=== PATIENT | female | born 2005 | race Caucasian/White ===

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

== ENCOUNTER 2023-01-17 21:04 | Emergency (ER) | payer BC ==
[2023-01-17 21:12] VITALS: BP 135/92; PULSE 90; RESP 18; TEMP 99.3; BMI 18.1
[2023-01-17] MEDS ORDERED: ACETAMINOPHEN 1000 MG/100 ML BAG IVPB ONE (22:00)
[2023-01-17] MEDS ORDERED: SODIUM CHLORIDE 0.9% 500 ML INFUS.BAG IV ONE (22:00)
[2023-01-17] MEDS ORDERED: ONDANSETRON 4 MG/2 ML VIAL IVPUSH ONE (22:00)
[2023-01-17] MEDS ORDERED: ACETAMINOPHEN INJECTION 100 ML IVPB ONE (22:06)
[2023-01-17] MEDS ORDERED: ONDANSETRON 4 MG/2 ML VIAL ONE (22:06)
[2023-01-17 22:31] LABS: BASO % 0.8 % (0-2.0); EOS % 0.8 % (0-4.5); HEMATOCRIT 40.8 % (32.4-45.2); HEMOGLOBIN 13.8 GM/dL (10.7-15.3); LYMPH % 35.2 % (8-40); MCH 28.1 pg (25.7-33.7); MCHC 33.9 g/dl (32.0-36.0); MEAN PLT VOLUME 8.6 fl (7.5-11.1); NEUT % 56.2 % (42.8-82.8); PLATELET COUNT 267 10^3/uL (134-434); RBC 4.92 M/mm3 (3.60-5.2); RDW 13.3 % (11.6-15.6); WHITE BLOOD COUNT 12.4 K/mm3 (4.0-10.0)
[2023-01-17 22:33] LABS: PH,URINE 7.5 (5.0-8.0); URINE APPEARANCE CLEAR; URINE BILIRUBIN NEGATIVE (NEGATIVE); URINE COLOR YELLOW; URINE GLUCOSE (UA) NEGATIVE (NEGATIVE); URINE KETONE NEGATIVE (NEGATIVE); URINE LEUK ESTERASE NEGATIVE (NEGATIVE); URINE NITRITE NEGATIVE (NEGATIVE); URINE PROTEIN NEGATIVE (NEGATIVE); URINE UROBILINOGEN 0.2 mg/dL (0.2-1.0)
[2023-01-17 22:46] LABS: INR 1.1 (0.83-1.09); PROTHROMBIN TIME (PATIENT) 12.7 SEC (9.7-13.0)
[2023-01-17 22:48] LABS: ACTIVATED PTT 31.1 SECONDS (25.2-36.5)
[2023-01-17 23:07] LABS: ALBUMIN 4.5 g/dl (3.4-5.0); ALK PHOS 48 U/L (45-117); ANION GAP 7 MMOL/L (8-16); BILIRUBIN,TOTAL 0.6 mg/dL (0.2-1); BLOOD UREA NITROGEN 9.6 mg/dL (7-18); CHLORIDE 108 mmol/L (98-107); CO2 24 mmol/L (21-32); CREATININE 0.7 mg/dL (0.55-1.3); GLUCOSE,RANDOM 73 mg/dL (74-106); MAGNESIUM 2.3 mg/dL (1.8-2.4); POTASSIUM 3.4 mmol/L (3.5-5.1); SGOT/AST 16 U/L (15-37); SGPT/ALT 22 U/L (13-61); SODIUM 140 mmol/L (136-145); TOT PROT 8.3 g/dl (6.4-8.2)
[2023-01-17] MEDS ORDERED: KETOROLAC TROMETHAMINE 15 MG/ML VIAL IVPUSH ONE (23:34)
[2023-01-17] MEDS ORDERED: POTASSIUM CHLORIDE ORAL LIQUID 20 MEQ/15 ML PO ONE (23:52)
[2023-01-18] MEDS ORDERED: POTASSIUM CHLORIDE ORAL LIQUID 20 MEQ/15 ML ONE (00:18)
[2023-01-18] MEDS ORDERED: KETOROLAC TROMETHAMINE 15 MG/ML VIAL ONE (00:19)
== END 2023-01-18 00:25 | disposition home or self-care (01) ==
LOC: JER 21:04
PROC: 3E033NZ Introduction of Analgesics, Hypnotics, Sedatives into Peripheral Vein, Percutaneous Approach (ICD-10-PCS; principal; 2023-01-17)
PROC: 3E033GC Introduction of Other Therapeutic Substance into Peripheral Vein, Percutaneous Approach (ICD-10-PCS; 2023-01-17)
PROC: 3E033GC Introduction of Other Therapeutic Substance into Peripheral Vein, Percutaneous Approach (ICD-10-PCS; 2023-01-17)
DX: R10.30 Lower abdominal pain, unspecified (principal); R11.2 Nausea with vomiting, unspecified; Z20.822 Contact with and (suspected) exposure to COVID-19
CPT/HCPCS: 0241U-QW; 36415; 80053; 81003; 83735; 84702; 85025; 85610; 85730; 86850; 86900; 86901; 87086; 99284-25

== ENCOUNTER 2024-05-08 13:46 | Emergency (ER) | payer BC ==
[2024-05-08 13:56] VITALS: BP 135/91; PULSE 96; RESP 20; TEMP 99.3; BMI 18.4
[2024-05-08 15:32] LABS: BASO % 0.9 % (0-2.0); EOS % 2.2 % (0-4.5); HEMATOCRIT 40.1 % (32.4-45.2); HEMOGLOBIN 13.6 GM/dL (10.7-15.3); LYMPH % 41.2 % (8-40); MCHC 33.9 g/dl (32.0-36.0); MEAN CELL VOLUME 85.5 fl (80-96); MEAN PLT VOLUME 8.8 fl (7.5-11.1); MONO % 6.6 % (3.8-10.2); NEUT % 49.1 % (42.8-82.8); PLATELET COUNT 222 10^3/uL (134-434); RBC 4.69 M/mm3 (3.60-5.2); RDW 13.5 % (11.6-15.6); WHITE BLOOD COUNT 8.4 K/mm3 (4.0-10.0)
[2024-05-08 15:35] LABS: EPI CELLS 7 /uL (0-25.1); HYALINE CASTS 1 /uL (0-3.1); PH,URINE 6.5 (5.0-8.0); URINE APPEARANCE CLEAR; URINE BACTERIA 41 /uL (0-1359); URINE BILIRUBIN NEGATIVE (NEGATIVE); URINE COLOR YELLOW; URINE GLUCOSE (UA) NEGATIVE (NEGATIVE); URINE KETONE NEGATIVE (NEGATIVE); URINE LEUK ESTERASE NEGATIVE (NEGATIVE); URINE NITRITE NEGATIVE (NEGATIVE); URINE PROTEIN NEGATIVE (NEGATIVE); URINE RBC 297 /uL (0-23.9); URINE UROBILINOGEN 0.2 mg/dL (0.2-1.0); URINE WBC 6 /uL (0-25.8)
[2024-05-08 15:55] LABS: POTASSIUM 4.3 mmol/L (3.5-5.1)
[2024-05-08 15:57] LABS: CALCIUM 9.2 mg/dL (8.5-10.1)
[2024-05-08 15:59] LABS: ALBUMIN 4.1 g/dl (3.4-5.0); BLOOD UREA NITROGEN 10.8 mg/dL (7-18)
[2024-05-08 16:01] LABS: CREATININE 0.7 mg/dL (0.55-1.3)
[2024-05-08 16:03] LABS: BILIRUBIN,TOTAL 0.2 mg/dL (0.2-1); TOT PROT 7.1 g/dl (6.4-8.2)
[2024-05-08 16:48] LABS: HIV INTERPRETATION NEGATIVE (NEGATIVE)
== END 2024-05-08 20:00 | disposition home or self-care (01) ==
LOC: JER 13:46
DX: N83.202 Unspecified ovarian cyst, left side (principal); R10.12 Left upper quadrant pain; R10.32 Left lower quadrant pain
CPT/HCPCS: 36415; 74176-TC; 76830-TC; 80053; 81003; 83690; 84703; 85025; 86803; 87077; 87086; 87389; 93005; 93010; 99285-25